=== PATIENT | female | born 1975 | race American Indian/Alaskan Native ===

== ENCOUNTER 2021-01-03 10:56 | Emergency (ER) | payer SELFPAY ==
[2021-01-03 11:18] VITALS: BP 144/86
--- NOTE | 2021-01-03 11:33 | Emergency Department Report ---
Chief Complaint: Urogenital-Female Stated Complaint: BLEEDING Time Seen by Provider: 01/03/21 11:23 - HPI History of Present Illness: The patient was evaluated in the emergency department for symptoms described in the history of present illness. He/she was evaluated in the context of the global COVID-19 pandemic, which necessitated consideration that the patient might be at risk for infection with the virus that causes COVID-19. Institutional protocols and algorithms that pertain to the evaluation of patients at risk for COVID-19 are in a state of rapid change based on information released by regulatory bodies including the CDC and federal and state organizations. These policies and algorithms were followed during the patient's care in the emergency department. Please note that these policies, procedures and recommendations changed on a rapid basis. 45-year-old -[place] female presents to the emergency room for concerns for menopause. Patient states she has not been able to sleep and had to have irregular menstrual cycles. Patient states that she has seen a doctor last month for this but she still not able to sleep so she decided to come to the emergency room. Patient denies any pain at this time. - Exam Vital Signs: Vital Signs 01/03/21 11:17 Temperature 98.2 F Pulse Rate 70 Respiratory 20 Rate Blood Pressure 144/86 [Right] O2 Sat by Pulse 99 Oximetry Physical Exam: General: Awake, appropriately interactive, no acute distress. Neck: Supple. Full range of motion intact. Cardiovascular: Normal peripheral perfusion. Pulmonary: No respiratory distress. Patient is speaking normally without use of accessory muscles. Skin: No apparent rashes or lesions. Neurological: No facial asymmetry. Speech is clear. Follows commands. Patient is alert and oriented. Musculoskeletal: Full range of motion, no crepitus. Able to bear weight and ambulate without difficulty. Distal neurovascular and motor/sensory function is intact. Psych: Cooperative. Appropriate mood and affect. MSE screening note: Focused history and physical exam performed. Due to findings the following was ordered: 45-year-old -[place] female presents to the emergency room for concerns for menopause. Patient states she has not been able to sleep and had to have irregular menstrual cycles. Patient states that she has seen a doctor last month for this but she still not able to sleep so she decided to come to the emergency room. Patient denies any pain at this time. ED Medical Decision Making - Medical Decision Making 45-year-old -[place] female presents to the emergency room for concerns for menopause. Patient states she has not been able to sleep and had to have irregular menstrual cycles. Patient states that she has seen a doctor last month for this but she still not able to sleep so she decided to come to the emergency room. Patient denies any pain at this time. Discussed with patient that this is chronic and that she should follow-up with her primary care provider or [facility]. ED Disposition for MSE Disposition: 01 HOME / SELF CARE / HOMELESS Is pt being admited?: No Does the pt Need Aspirin: No Condition: Stable Additional Instructions: Please follow-up with a primary care provider or [facility] provider. Referrals: [facility] [Provider Group] - 3-5 Days [facility] [Provider Group] - 3-5 Days
== END 2021-01-03 11:49 | disposition home or self-care (01) ==
LOC: ED 10:56
DX: N92.6 Irregular menstruation, unspecified (principal); Z78.0 Asymptomatic menopausal state
CPT/HCPCS: 99281